=== PATIENT | female | born 1990 | race Caucasian/White ===

== ENCOUNTER 2016-12-30 22:03 | Emergency (ER) | payer OTHER ==
[~2016-12-30] VITALS: Ht 160 cm; Wt 183.5 kg
[2016-12-31] MEDS ORDERED: LORazepam 0.5 MG TABLET PO ONE (00:30)
[2016-12-31 01:19] VITALS: BP 131/71
== END 2016-12-31 01:20 | disposition home or self-care (01) ==
LOC: EMS 22:04
DX: F41.9 Anxiety disorder, unspecified (principal); J02.9 Acute pharyngitis, unspecified; E11.9 Type 2 diabetes mellitus without complications
CPT/HCPCS: 99282